=== PATIENT | male | born 1990 | race Caucasian/White ===

== ENCOUNTER 2018-07-06 12:19 | Emergency (ER) | payer OTHER ==
[~2018-07-06] VITALS: Ht 180.3 cm; Wt 111.1 kg
[2018-07-06 12:25] VITALS: BP 109/56; Ht 180.3 cm; Wt 111.1 kg
== END 2018-07-06 13:31 | disposition other institution (70) ==
LOC: ED 12:19
DX: S46.912A Strain of unspecified muscle, fascia and tendon at shoulder and upper arm level, left arm, initial encounter (principal); S00.81XA Abrasion of other part of head, initial encounter; V89.2XXA Person injured in unspecified motor-vehicle accident, traffic, initial encounter; Y93.89 Activity, other specified; Y92.89 Other specified places as the place of occurrence of the external cause; Y99.8 Other external cause status

== ENCOUNTER 2018-07-06 12:19 | Emergency (ER) | payer OTHER | END 2018-07-06 13:31 | disposition other institution (70) | LOC: ED 12:19 | DX: Z02.89 Encounter for other administrative examinations (principal) ==